=== PATIENT | female | born 1990 | race American Indian/Alaskan Native ===

== ENCOUNTER 2017-07-14 17:31 | Emergency (ER) | payer SELFPAY ==
[2017-07-14] MEDS ORDERED: metroNIDAZOLE 250 MG Tab PO ONE ×2 (17:32→19:23)
[2017-07-14] MEDS ORDERED: cefTRIAXone 250 MG, Lidocaine 1% 0.9 ML IM ONE ×2 (19:18)
[2017-07-14] MEDS ORDERED: Azithromycin 250 MG Tab PO ONE (19:20)
--- NOTE | 2017-07-14 19:28 | EDM.PDOC ---
ED HPI GENERAL MEDICAL PROBLEM - General Chief Complaint: Genitourinary Problem Stated Complaint: STD [phone] Time Seen by Provider: 07/14/17 19:00 Source of Information: Reports: Patient History Limitations: Reports: No Limitations - History of Present Illness INITIAL COMMENTS - FREE TEXT/NARRATIVE: Ed with c/o yellowish vaginal discharge since 2 weeks after unprotected sex. Hx STD one year ago. LMP 3 weeks ago, menses have been irregular for months Lower Abdomen Pain Score (Numeric/FACES): 4 - Related Data Allergies Allergy/AdvReac Type Severity Reaction Status Date / Time No Known Allergies Allergy Verified 07/14/17 17:37 Home Meds: Home Meds Acetaminophen [Tylenol] 3 tab PO ASDIRECTED PRN 07/14/17 [History] Past Medical History HEENT History: Reports: None Cardiovascular History: Reports: None Respiratory History: Reports: None Gastrointestinal History: Reports: None Genitourinary History: Reports: None [employer] History: Reports: Musculoskeletal History: Reports: Fracture Neurological History: Reports: None Psychiatric History: Reports: None Endocrine/Metabolic History: Reports: Diabetes, Gestational Hematologic History: Reports: None Immunologic History: Reports: None Oncologic (Cancer) History: Reports: None Dermatologic History: Reports: None - Past Surgical History HEENT Surgical History: Reports: None Cardiovascular Surgical History: Reports: None Respiratory Surgical History: Reports: None GI Surgical History: Reports: None Female Surgical History: Reports: Section, Tubal Ligation Endocrine Surgical History: Reports: None Neurological Surgical History: Reports: Spinal Fusion Musculoskeletal Surgical History: Reports: Other (See Below) Other Musculoskeletal Surgeries/Procedures:: 2 pins in pelvis Social & Family History - Tobacco Use Smoking Status *Q: Never Smoker - Caffeine Use Caffeine Use: Reports: Coffee, Soda - Recreational Drug Use Recreational Drug Use: No ED ROS GENERAL - Review of Systems Review Of Systems: See Below Respiratory: Reports: No Symptoms Cardiovascular: Reports: No Symptoms GI/Abdominal: Reports: Abdominal Pain : Reports: Discharge, Irregular Menses Musculoskeletal: Reports: No Symptoms Skin: Reports: No Symptoms ED EXAM, RENAL/ - Physical Exam Exam: See Below Exam Limited By: No Limitations General Appearance: Alert, No Apparent Distress Eye Exam: Bilateral Eye: EOMI Ears: Normal External Exam Nose: Normal Inspection Throat/Mouth: Normal Inspection Head: Atraumatic, Normocephalic Respiratory/Chest: No Respiratory Distress Cardiovascular: Regular Rate, Rhythm GI/Abdominal: Soft (Female) Exam: Normal External Exam, Cervix Motion Tenderness (mild), Vaginal Discharge (milky yellow tinge) Neurological: Alert, Oriented Psychiatric: Normal Affect Skin Exam: Warm, Dry, Intact Course - Vital Signs Last Recorded V/S: Last Vital Signs Temp 98.2 F 07/14/17 19:32 Pulse 94 07/14/17 19:32 Resp 16 07/14/17 19:32 BP 120/77 07/14/17 19:32 Pulse Ox 97 07/14/17 19:32 - Orders/Labs/Meds Orders: Active Orders 24 hr Category Date Time Status CHLAMYDIA AND GONORRHEA BY [facility] Urgent Lab 07/14/17 18:22 Received Labs: Laboratory Tests 07/14/17 07/14/17 Range/Units 18:22 18:22 Urine Color Light yellow (YELLOW) Urine Appearance Clear (CLEAR) Urine pH 6.0 (5.0-9.0) Ur Specific [place] <= 1.005 (1.005-1.030) Urine Protein Negative (NEGATIVE) Urine Glucose (UA) Negative (NEGATIVE) Urine Ketones Negative (NEGATIVE) Urine Occult Blood Negative (NEGATIVE) Urine Nitrite Negative (NEGATIVE) Urine Bilirubin Negative (NEGATIVE) Urine Urobilinogen 0.2 (0.2-1.0) mg/dL Ur Leukocyte Esterase Negative (NEGATIVE) Urine RBC 0-5 /HPF Urine WBC 0-5 (0-5/HPF) /HPF Ur Epithelial Cells Few /HPF Urine Bacteria Few (0-FEW/HPF) /HPF Urinalysis Comment Urine HCG, Qual Negative Meds: Medications Discontinued Medications Generic Name Dose Route Start Last Admin Trade Name Fernando PRN Reason Stop Dose Admin Azithromycin 500 mg 07/14/17 19:20 07/14/17 19:28 Zithromax PO 07/14/17 19:21 500 mg ONETIME ONE Administration Ceftriaxone Sodium 250 mg/ 0 mg 07/14/17 19:18 07/14/17 19:29 Lidocaine HCl 0.9 ml IM 07/14/17 19:19 0.9 inj ONETIME ONE Administration Metronidazole 500 mg 07/14/17 19:23 07/14/17 19:28 Metronidazole PO 07/14/17 19:24 500 mg ONETIME ONE Administration Metronidazole Confirm 07/14/17 19:33 07/14/17 20:16 Metronidazole Administered 07/14/17 19:34 Not Given Dose 1,500 mg .ROUTE .STK-MED ONE Departure - Departure Time of Disposition: 19:55 Disposition: Home, Self-Care 01 Condition: Good Clinical Impression: BV (bacterial vaginosis) - Discharge Information Instructions: Sexually Transmitted Disease, [id number] Referrals: Cameron Nayak MD [Primary Care Provider] - Forms: ED Department Discharge Additional Instructions: Falgyl 500mg twice daily for one week no alcohol while taking medication use protection with intercourse. follow up in 3-4 weeks to make sure infection has cleared.
[2017-07-14] MEDS ORDERED: metroNIDAZOLE 250 MG Tab ONE (19:33)
== END 2017-07-14 19:45 | disposition home or self-care (01) ==
LOC: DL.ED 17:31
DX: N76.0 Acute vaginitis (principal); B96.89 Other specified bacterial agents as the cause of diseases classified elsewhere
CPT/HCPCS: 81001; 81025; 87210; 87491; 87591; 96372; 99283; A9270; J0696